=== PATIENT | male | born 1970 | race African-American/Black ===

== ENCOUNTER 2017-01-12 17:53 | Emergency (ER) | payer MEDICAID ==
[~2017-01-12] VITALS: Ht 177.8 cm; Wt 91.0 kg
[2017-01-12] MEDS ORDERED: IBUPROFEN 800MG TABLET PO ONE (19:15)
[2017-01-12] MEDS ORDERED: ONDANSETRON HCL 4MG TABLET PO ONE (19:15)
[2017-01-12 19:46] VITALS: BP 121/66
[2017-01-12 20:26] LABS: BASOPHILS % 0.8 % (0.0-2.0); CHLORIDE 108 mEq/L (98-107); EOSINOPHILS % 3.9 % (0.0-5.0); HEMATOCRIT. 43.4 % (42.0-52.0); HEMOGLOBIN. 14.8 g/dL (14.0-18.0); LYMPHOCYTES % 57.8 % (20.0-50.0); MEAN CORPUSCULAR HEMOGLOBIN 34.3 pg (28.0-32.0); MEAN CORPUSCULAR VOLUME 100.8 fL (80.0-94.0); MEAN PLATELET VOLUME 8.4 fl (7.4-10.4); MONOCYTES % 10.1 % (2.0-8.0); NEUTROPHILS % 27.4 % (40.0-76.0); PLATELET 109 x1000/uL (130-400); RED CELL DISTRIBUTION WIDTH 15.6 % (11.6-14.6)
[2017-01-12 20:30] LABS: CARBON DIOXIDE 26 mEq/L (21-32)
[2017-01-12 20:39] LABS: ETHANOL BLOOD 417 mg/dL
== END 2017-01-12 22:02 | disposition home or self-care (01) ==
LOC: ER 18:13
DX: F10.129 Alcohol abuse with intoxication, unspecified (principal); Z88.0 Allergy status to penicillin; Z91.010 Allergy to peanuts; Y90.8 Blood alcohol level of 240 mg/100 ml or more
CPT/HCPCS: 36415; 80053; 85025; 99284; G0482; Q0162

== ENCOUNTER 2017-03-04 15:52 | Emergency (ER) | payer MEDICAID, OTHER ==
[~2017-03-04] VITALS: Ht 177.8 cm; Wt 90.0 kg
[2017-03-04] MEDS ORDERED: SODIUM CHLORIDE 0.9% 1,000 ML IV ONE (19:32)
[2017-03-04 19:44] LABS: CLARITY URINE CLEAR (CLEAR); COLOR URINE YELLOW (YELLOW); GLUCOSE URINE NEGATIVE (NEGATIVE); KETONES URINE NEGATIVE (NEGATIVE); LEUKOCYTE ESTERASE URINE NEGATIVE (NEGATIVE); NITRITE URINE NEGATIVE (NEGATIVE); OCCULT BLOOD URINE NEGATIVE (NEGATIVE); PH URINE 5.5 (4.5-8.0); PROTEIN URINE TRACE (NEGATIVE); UROBILINOGEN URINE 0.2 E.U./dL (0.2-1.0)
[2017-03-04 19:55] LABS: *AMPHETAMINES SCREEN URINE NEGATIVE (NEGATIVE); *BARBITURATES SCREEN URINE NEGATIVE (NEGATIVE); *BENZODIAZEPINES SCREEN URINE NEGATIVE (NEGATIVE); *COCAINE SCREEN URINE NEGATIVE (NEGATIVE); CANNABINOID URINE SCREEN NEGATIVE (NEGATIVE); METHADONE URINE SCREEN NEGATIVE (NEGATIVE); OPIATES URINE SCREEN NEGATIVE (NEGATIVE); PHENCYCLIDINE URINE SCREEN NEGATIVE (NEGATIVE)
[2017-03-04 20:28] LABS: BASOPHILS % 1.4 % (0.0-2.0); EOSINOPHILS % 4.8 % (0.0-5.0); HEMATOCRIT. 42.6 % (42.0-52.0); HEMOGLOBIN. 14.5 g/dL (14.0-18.0); LYMPHOCYTES % 63.4 % (20.0-50.0); MEAN CORPUSCULAR HEMOGLOBIN 34.9 pg (28.0-32.0); MEAN CORPUSCULAR VOLUME 102.6 fL (80.0-94.0); MEAN PLATELET VOLUME 7.4 fl (7.4-10.4); MONOCYTES % 6.8 % (2.0-8.0); NEUTROPHILS % 23.6 % (40.0-76.0); PLATELET 170 x1000/uL (130-400); RED BLOOD CELL COUNT 4.15 mill/uL (4.7-6.1); RED CELL DISTRIBUTION WIDTH 15.2 % (11.6-14.6)
[2017-03-04 20:34] LABS: CHLORIDE 109 mEq/L (98-107)
[2017-03-04 20:36] LABS: INR 1.1; PROTHROMBIN TIME 11.5 sec (9.4-11.6)
[2017-03-04 20:38] LABS: CARBON DIOXIDE 28 mEq/L (21-32)
[2017-03-04 20:54] LABS: ETHANOL BLOOD 407 mg/dL
[2017-03-04 22:33] VITALS: BP 108/66
== END 2017-03-04 22:39 | disposition home or self-care (01) ==
LOC: ER 16:03
DX: F10.10 Alcohol abuse, uncomplicated (principal); R10.9 Unspecified abdominal pain; Z86.73 Personal history of transient ischemic attack (TIA), and cerebral infarction without residual deficits; Z88.0 Allergy status to penicillin; Y08.89XA Assault by other specified means, initial encounter; Y93.89 Activity, other specified; Y92.89 Other specified places as the place of occurrence of the external cause; Y99.8 Other external cause status
CPT/HCPCS: 36415; 70450; 74176; 80053; 80305; 81001; 83690; 85025; 85610; 96360; 99285; G0482; Z7610; J7030

== ENCOUNTER 2017-04-28 11:22 | Emergency (ER) | payer OTHER ==
[~2017-04-28] VITALS: Ht 172.7 cm; Wt 80.0 kg
[2017-04-28 11:23] VITALS: BP 148/82
[2017-04-28] MEDS ORDERED: ONDANSETRON HCL 4MG/2ML VIAL IV STA (11:30)
[2017-04-28] MEDS ORDERED: SODIUM CHLORIDE 0.9% 1,000 ML IV ONE (11:30)
[2017-04-28] MEDS ORDERED: FAMOTIDINE 20MG/2ML VIAL IV STA (11:30)
[2017-04-28 12:17] LABS: BASOPHILS % 0.8 % (0.0-2.0); EOSINOPHILS % 2.4 % (0.0-5.0); HEMATOCRIT. 48.4 % (42.0-52.0); HEMOGLOBIN. 16.5 g/dL (14.0-18.0); LYMPHOCYTES % 59.4 % (20.0-50.0); MEAN CORPUSCULAR HEMOGLOBIN 35.3 pg (28.0-32.0); MEAN CORPUSCULAR VOLUME 103.4 fL (80.0-94.0); MEAN PLATELET VOLUME 7.8 fl (7.4-10.4); MONOCYTES % 6.8 % (2.0-8.0); NEUTROPHILS % 30.6 % (40.0-76.0); PLATELET 142 x1000/uL (130-400); RED BLOOD CELL COUNT 4.68 mill/uL (4.7-6.1); RED CELL DISTRIBUTION WIDTH 14.2 % (11.6-14.6)
[2017-04-28 12:20] LABS: CHLORIDE 109 mEq/L (98-107)
[2017-04-28 12:29] LABS: CARBON DIOXIDE 26 mEq/L (21-32)
[2017-04-28 12:48] LABS: ETHANOL BLOOD 452 mg/dL
== END 2017-04-28 15:26 | disposition left against medical advice (07) ==
LOC: ER 11:29
DX: R10.13 Epigastric pain (principal); F10.129 Alcohol abuse with intoxication, unspecified; K70.30 Alcoholic cirrhosis of liver without ascites; I10 Essential (primary) hypertension; E11.9 Type 2 diabetes mellitus without complications; F17.210 Nicotine dependence, cigarettes, uncomplicated; D72.819 Decreased white blood cell count, unspecified; Y90.8 Blood alcohol level of 240 mg/100 ml or more; Z88.0 Allergy status to penicillin; Z90.49 Acquired absence of other specified parts of digestive tract
CPT/HCPCS: 36415; 80053; 83690; 85025; 99284; G0482; J7030

== ENCOUNTER 2017-07-19 10:51 | Emergency (ER) | payer OTHER ==
[~2017-07-19] VITALS: Ht 175.3 cm; Wt 98.0 kg
[2017-07-19] MEDS ORDERED: ONDANSETRON HCL 4MG/2ML VIAL IV STA (16:46)
[2017-07-19] MEDS ORDERED: PANTOPRAZOLE SODIUM 40 MG/VIAL IV STA (16:46)
[2017-07-19] MEDS ORDERED: MORPHINE SULFATE 4 MG/ML CPJ (NOT FOR IM USE) IV STA (16:46)
[2017-07-19] MEDS ORDERED: LORAZEPAM 2MG/ML CPJ IV ONE (17:00)
[2017-07-19] MEDS ORDERED: SODIUM CHLORIDE 0.9% 1,000 ML IV ONE ×2 (17:00)
[2017-07-19 17:20] LABS: BASOPHILS % 0.9 % (0.0-2.0); EOSINOPHILS % 1.6 % (0.0-5.0); HEMATOCRIT. 42.6 % (42.0-52.0); HEMOGLOBIN. 14.4 g/dL (14.0-18.0); LYMPHOCYTES % 50.5 % (20.0-50.0); MEAN CORPUSCULAR HEMOGLOBIN 34.4 pg (28.0-32.0); MEAN CORPUSCULAR VOLUME 101.3 fL (80.0-94.0); MEAN PLATELET VOLUME 7.8 fl (7.4-10.4); MONOCYTES % 6.2 % (2.0-8.0); NEUTROPHILS % 40.8 % (40.0-76.0); PLATELET 116 x1000/uL (130-400); RED CELL DISTRIBUTION WIDTH 15.2 % (11.6-14.6)
[2017-07-19 17:24] LABS: CHLORIDE 102 mEq/L (98-107)
[2017-07-19 17:25] LABS: INR 1.1; PARTIAL THROMBOPLASTIN TIME 26.5 sec (23.4-31.0); PROTHROMBIN TIME 11.4 sec (9.4-11.6)
[2017-07-19 17:35] LABS: CLARITY URINE CLEAR (CLEAR); COLOR URINE YELLOW (YELLOW); KETONES URINE TRACE (NEGATIVE); LEUKOCYTE ESTERASE URINE NEGATIVE (NEGATIVE); NITRITE URINE NEGATIVE (NEGATIVE); OCCULT BLOOD URINE 1+ (NEGATIVE); PH URINE 5.5 (4.5-8.0); PROTEIN URINE 2+ (NEGATIVE); SPECIFIC GRAVITY URINE 1.013 (1.005-1.030)
[2017-07-19 18:52] VITALS: BP 123/83
== END 2017-07-19 19:02 | disposition home or self-care (01) ==
LOC: ER 10:58
DX: F10.239 Alcohol dependence with withdrawal, unspecified (principal); K29.21 Alcoholic gastritis with bleeding; K70.30 Alcoholic cirrhosis of liver without ascites; Y90.9 Presence of alcohol in blood, level not specified; K27.9 Peptic ulcer, site unspecified, unspecified as acute or chronic, without hemorrhage or perforation; E11.9 Type 2 diabetes mellitus without complications; I10 Essential (primary) hypertension; Z88.0 Allergy status to penicillin; Z90.49 Acquired absence of other specified parts of digestive tract; Z86.73 Personal history of transient ischemic attack (TIA), and cerebral infarction without residual deficits
CPT/HCPCS: 36415; 80053; 81003; 83690; 85025; 85610; 85730; 86850; 86900; 86901; 96361; 96374; 96375; 99285; C9113; J2060; J2270; J2405; J7030; Z7610

== ENCOUNTER 2017-10-24 21:06 | Emergency (ER) | payer MEDICAID, OTHER ==
[~2017-10-24] VITALS: Ht 185.4 cm; Wt 102.0 kg
[2017-10-24 21:09] VITALS: BP 108/64
== END 2017-10-25 00:59 | disposition left against medical advice (07) ==
LOC: ER 23:09
DX: F10.10 Alcohol abuse, uncomplicated (principal); Z53.21 Procedure and treatment not carried out due to patient leaving prior to being seen by health care provider; Y90.9 Presence of alcohol in blood, level not specified

== ENCOUNTER 2018-09-21 16:15 | Emergency (ER) | payer MEDICAID ==
[~2018-09-21] VITALS: Ht 177.8 cm; Wt 105.0 kg
[2018-09-21 21:15] VITALS: BP 104/55
== END 2018-09-21 21:17 | disposition home or self-care (01) ==
LOC: ER 16:15
DX: F10.229 Alcohol dependence with intoxication, unspecified (principal); Y90.0 Blood alcohol level of less than 20 mg/100 ml; E11.9 Type 2 diabetes mellitus without complications; I10 Essential (primary) hypertension; Z86.73 Personal history of transient ischemic attack (TIA), and cerebral infarction without residual deficits; Z88.0 Allergy status to penicillin; Z91.010 Allergy to peanuts
CPT/HCPCS: 82962; 99283; Z7610

== ENCOUNTER 2019-12-12 18:01 | Inpatient (IN) | payer MEDICAID ==
[2019-12-12] VITALS: BP 125/70
[~2019-12-12] VITALS: Ht 172.7 cm; Wt 96.4 kg
[2019-12-12] MEDS ORDERED: ONDANSETRON HCL 4MG/2ML INJ IV STA (18:41)
[2019-12-12] MEDS ORDERED: SODIUM CHLORIDE 0.9% 1,000 ML IV ONE (18:41)
[2019-12-12] MEDS ORDERED: FAMOTIDINE 20MG/2ML VIAL IV STA (18:41)
[2019-12-12] MEDS ORDERED: MORPHINE SULFATE 4 MG/ML CPJ (NOT FOR IM USE) IV STA (18:41)
[2019-12-12] MEDS ORDERED: LORAZEPAM 2MG/ML CPJ IV ONE (19:15)
[2019-12-12 19:16] LABS: HEMATOCRIT. 42.1 % (42.0-52.0); HEMOGLOBIN. 14.3 g/dL (14.0-18.0); MEAN CORPUSCULAR HEMOGLOBIN 35.8 pg (28.0-32.0); MEAN CORPUSCULAR VOLUME 105.3 fL (80.0-94.0); MEAN PLATELET VOLUME 7.7 fl (7.4-10.4); PLATELET 81 x1000/uL (130-400)
[2019-12-12 19:21] LABS: CHLORIDE 104 mEq/L (98-107)
[2019-12-12 19:24] LABS: INR 1.1
[2019-12-12 19:39] LABS: ETHANOL BLOOD 417 mg/dL
[2019-12-12 20:15] LABS: CLARITY URINE CLEAR (CLEAR); COLOR URINE DK YELLOW (YELLOW); KETONES URINE TRACE (NEGATIVE); LEUKOCYTE ESTERASE URINE NEGATIVE (NEGATIVE); NITRITE URINE NEGATIVE (NEGATIVE); OCCULT BLOOD URINE 3+ (NEGATIVE); PROTEIN URINE 2+ (NEGATIVE); SPECIFIC GRAVITY URINE 1.015 (1.005-1.030)
[2019-12-12 20:24] LABS: PLATELET ESTIMATE DECREASED
[2019-12-12 20:52] LABS: *AMPHETAMINES SCREEN URINE NEGATIVE (NEGATIVE); *BARBITURATES SCREEN URINE NEGATIVE (NEGATIVE)
[2019-12-12 20:53] LABS: *BENZODIAZEPINES SCREEN URINE NEGATIVE (NEGATIVE); *COCAINE SCREEN URINE NEGATIVE (NEGATIVE); CANNABINOID URINE SCREEN NEGATIVE (NEGATIVE); METHADONE URINE SCREEN NEGATIVE (NEGATIVE); OPIATES URINE SCREEN NEGATIVE (NEGATIVE); PHENCYCLIDINE URINE SCREEN NEGATIVE (NEGATIVE)
[2019-12-13] VITALS (7 sets, daily range): BP systolic 105–151; BP diastolic 60–84
[2019-12-13] MEDS: LORAZEPAM 2MG/ML CPJ IV PRN ×4 (00:36→23:41)
[2019-12-13] MEDS: CHLORDIAZEPOXIDE 25MG CAPSULE PO SCH ×4 (05:44→21:02)
[2019-12-13 06:15] LABS: CHLORIDE 102 mEq/L (98-107)
[2019-12-13 06:19] LABS: AMYLASE 78 IU/L (25-115)
[2019-12-13 06:47] LABS: HEMATOCRIT. 37.1 % (42.0-52.0); HEMOGLOBIN. 12.5 g/dL (14.0-18.0); MEAN CORPUSCULAR HEMOGLOBIN 35.8 pg (28.0-32.0); MEAN CORPUSCULAR VOLUME 105.8 fL (80.0-94.0); MEAN PLATELET VOLUME 8.1 fl (7.4-10.4); PLATELET 68 x1000/uL (130-400)
[2019-12-13] MEDS: MULTIVITAMINS,THER W-MINERALS TABLET PO SCH (08:28)
[2019-12-13] MEDS: THIAMINE HCL 100MG TABLET PO SCH (08:28)
[2019-12-13] MEDS: FOLIC ACID 1MG TABLET PO SCH (08:29)
[2019-12-13] MEDS ORDERED: DIPHENHYDRAMINE 50MG CAPSULE PO PRN (10:00)
[2019-12-13] MEDS: OMEPRAZOLE 20MG CAPSULE EXTENDED RELEASE PO SCH (13:16)
[2019-12-13] MEDS ORDERED: METOPROLOL TARTRATE 50MG TABLET PO SCH ×2 (14:00→21:00)
[2019-12-13 14:44] LABS: PLATELET ESTIMATE DECREASED
[2019-12-13] MEDS ORDERED: DIPHENHYDRAMINE 50MG/ML VIAL IV PRN (19:45)
[2019-12-13] MEDS: MORPHINE SULFATE 2 MG/ML CPJ (NOT FOR IM USE) IV PRN (20:18)
[2019-12-14] VITALS (12 sets, daily range): BP systolic 48–139; BP diastolic 26–87
[2019-12-14] MEDS ORDERED: ONDANSETRON HCL 4MG/2ML INJ IV PRN
[2019-12-14] MEDS: MORPHINE SULFATE 2 MG/ML CPJ (NOT FOR IM USE) IV PRN (00:26)
[2019-12-14] MEDS: CHLORDIAZEPOXIDE 25MG CAPSULE PO SCH ×3 (05:17→22:21)
[2019-12-14 06:48] LABS: CHLORIDE 101 mEq/L (98-107)
[2019-12-14 06:57] LABS: PHOSPHORUS 2.7 mg/dL (2.5-4.9)
[2019-12-14 07:05] LABS: BASOPHILS % 0.4 % (0.0-2.0); EOSINOPHILS % 1.9 % (0.0-5.0); HEMATOCRIT. 41.7 % (42.0-52.0); HEMOGLOBIN. 14.1 g/dL (14.0-18.0); LYMPHOCYTES % 10.4 % (20.0-50.0); MEAN CORPUSCULAR HEMOGLOBIN 35.8 pg (28.0-32.0); MEAN CORPUSCULAR VOLUME 105.9 fL (80.0-94.0); MONOCYTES % 2.9 % (2.0-8.0); NEUTROPHILS % 84.4 % (40.0-76.0); PLATELET 73 x1000/uL (130-400); RED BLOOD CELL COUNT 3.94 mill/uL (4.7-6.1); RED CELL DISTRIBUTION WIDTH 14.7 % (11.6-14.6)
[2019-12-14] MEDS: MULTIVITAMINS,THER W-MINERALS TABLET PO SCH (08:39)
[2019-12-14] MEDS: FOLIC ACID 1MG TABLET PO SCH (08:39)
[2019-12-14] MEDS: THIAMINE HCL 100MG TABLET PO SCH (08:39)
[2019-12-14] MEDS: ACETYLCYSTEINE 100MG/ML 10% VIAL 4ML INH SCH (08:49)
[2019-12-14] MEDS ORDERED: METOPROLOL TARTRATE 100MG TABLET PO SCH (09:00)
[2019-12-14] MEDS ORDERED: DILTIAZEM HCL 5MG/ML 5ML VIAL IV NR (12:15)
[2019-12-14] MEDS: OMEPRAZOLE 20MG CAPSULE EXTENDED RELEASE PO SCH (13:00)
[2019-12-14 13:07] LABS: BG BASE EXCESS -1.5 mmol/L (-2.0-2.0); BG CARBOXYHEMOGLOBIN 1.3 % (0.5-1.5); BG DEOXYHEMOGLOBIN 21.3 % (0.0-5.0); BG FRACTION INSPIRED OXYGEN 21; BG HCO3 ACT 20.7 mmol/L (22.0-26.0); BG METHEMOGLOBIN 0.3 % (0.0-1.5); BG OXYGEN SATURATION 78.4 % (92.0-98.5); BG OXYHEMOGLOBIN 77.1 % (94.0-97.0); BG PCO2 28.3 mmHg (35.0-45.0); BG PH 7.481 (7.350-7.450); BG PO2 40.7 mmHg (75.0-100.0); BG SAMPLE SITE RIGHT RADIAL; BG TOTAL HEMOGLOBIN 14.6 g/dL (12.0-18.0); BG VENT MODE ROOM AIR
[2019-12-14] MEDS: CEFEPIME 1,000 MG in DEXTROSE 5% WATER 50 ML IV SCH ×2 (15:47→22:20)
[2019-12-14] MEDS: METRONIDAZOLE 500 MG PREMIX 100 ML IV SCH ×2 (15:47→22:20)
[2019-12-14] MEDS ORDERED: DILTIAZEM HCL 120MG CAPSULE CD 24HR PO SCH (18:00)
[2019-12-14] MEDS: DILTIAZEM HCL 60MG TABLET PO SCH (18:00)
[2019-12-14] MEDS: FOLIC ACID 1 MG, THIAMINE HCL 100 MG, MVI, ADULT NO.1 10 ML in DEXTROSE 5% WATER 1,000 ML IV SCH ×4 (18:13)
[2019-12-14] MEDS: IPRATROPIUM BROMIDE (0.02%) 0.5MG/2.5ML NEB HHN SCH (19:59)
[2019-12-14] MEDS ORDERED: EPINEPHRINE 1 MG in SODIUM CHLORIDE 0.9% 250 ML IV PRN (23:30)
[2019-12-15] VITALS (96 sets, daily range): BP systolic 73–135; BP diastolic 45–101
[2019-12-15 00:25] LABS: BG BASE EXCESS -7.6 mmol/L (-2.0-2.0); BG CARBOXYHEMOGLOBIN 0.3 % (0.5-1.5); BG DEOXYHEMOGLOBIN 23.7 % (0.0-5.0); BG FRACTION INSPIRED OXYGEN 100; BG HCO3 ACT 23.6 mmol/L (22.0-26.0); BG METHEMOGLOBIN 0.4 % (0.0-1.5); BG OXYGEN SATURATION 76.1 % (92.0-98.5); BG OXYHEMOGLOBIN 75.6 % (94.0-97.0); BG PCO2 78.1 mmHg (35.0-45.0); BG PH 7.099 (7.350-7.450); BG PO2 55.8 mmHg (75.0-100.0); BG SAMPLE SITE LEFT BRACHIAL; BG TIDAL VOLUME(mL) 500 mL; BG TOTAL HEMOGLOBIN 13.7 g/dL (12.0-18.0); BG VENT MODE VENT - A/C; BG VENT RATE 16 set
[2019-12-15] MEDS: PHENYLEPHRINE 80 MG in DEXT 5% WATER 492 ML IV PRN ×4 (01:11→22:09)
[2019-12-15] MEDS: VASOPRESSIN 10 UNIT in SODIUM CHLORIDE 0.9% 99.5 ML IV PRN ×4 (04:37→19:02)
[2019-12-15] MEDS: DILTIAZEM HCL 60MG TABLET PO SCH ×5 (05:21→23:01)
[2019-12-15] MEDS: CHLORDIAZEPOXIDE 25MG CAPSULE PO SCH (05:21)
[2019-12-15] MEDS: METRONIDAZOLE 500 MG PREMIX 100 ML IV SCH ×3 (05:21→21:03)
[2019-12-15 05:23] LABS: BASOPHILS % 0.4 % (0.0-2.0); EOSINOPHILS % 3.6 % (0.0-5.0); HEMATOCRIT. 42.3 % (42.0-52.0); HEMOGLOBIN. 14.2 g/dL (14.0-18.0); MEAN CORPUSCULAR HEMOGLOBIN 36.1 pg (28.0-32.0); MEAN CORPUSCULAR VOLUME 107.1 fL (80.0-94.0); MEAN PLATELET VOLUME 9.8 fl (7.4-10.4); MONOCYTES % 10.5 % (2.0-8.0); NEUTROPHILS % 68.5 % (40.0-76.0); PLATELET 78 x1000/uL (130-400); RED BLOOD CELL COUNT 3.95 mill/uL (4.7-6.1); RED CELL DISTRIBUTION WIDTH 15.3 % (11.6-14.6)
[2019-12-15 08:15] LABS: BG BASE EXCESS 0.7 mmol/L (-2.0-2.0); BG CARBOXYHEMOGLOBIN 0.4 % (0.5-1.5); BG DEOXYHEMOGLOBIN 7.8 % (0.0-5.0); BG FRACTION INSPIRED OXYGEN 100; BG HCO3 ACT 26.3 mmol/L (22.0-26.0); BG METHEMOGLOBIN 0.1 % (0.0-1.5); BG OXYGEN SATURATION 92.2 % (92.0-98.5); BG OXYHEMOGLOBIN 91.7 % (94.0-97.0); BG PCO2 45.6 mmHg (35.0-45.0); BG PH 7.379 (7.350-7.450); BG PO2 66.9 mmHg (75.0-100.0); BG SAMPLE SITE RIGHT RADIAL; BG TIDAL VOLUME(mL) 500 mL; BG TOTAL HEMOGLOBIN 14.5 g/dL (12.0-18.0); BG VENT MODE VENT - A/C; BG VENT RATE 20 set
[2019-12-15] MEDS: IPRATROPIUM BROMIDE (0.02%) 0.5MG/2.5ML NEB HHN SCH ×2 (08:49→21:02)
[2019-12-15] MEDS ORDERED: NOREPINEPHRINE 4 MG in DEXT 5% WATER 246 ML IV PRN (10:00)
[2019-12-15] MEDS: DEXT 5%/0.45% NACL 1000ML 1,000 ML IV SCH (10:05)
[2019-12-15] MEDS: CEFEPIME 1,000 MG in DEXTROSE 5% WATER 50 ML IV SCH ×2 (11:50→20:19)
[2019-12-15] MEDS: OMEPRAZOLE 20MG CAPSULE EXTENDED RELEASE PO SCH (14:17)
[2019-12-15] MEDS: FOLIC ACID 1 MG, THIAMINE HCL 100 MG, MVI, ADULT NO.1 10 ML in DEXTROSE 5% WATER 1,000 ML IV SCH ×4 (17:46)
[2019-12-15] MEDS: ACETYLCYSTEINE 100MG/ML 10% VIAL 4ML INH SCH (21:03)
[2019-12-16] VITALS (102 sets, daily range): BP systolic 72–173; BP diastolic 45–134
[2019-12-16] MEDS ORDERED: ACETAMINOPHEN 650MG/20.3ML UDC NG PRN (00:45)
[2019-12-16] MEDS: VASOPRESSIN 10 UNIT in SODIUM CHLORIDE 0.9% 99.5 ML IV PRN ×5 (01:12→19:36)
[2019-12-16] MEDS: IPRATROPIUM BROMIDE (0.02%) 0.5MG/2.5ML NEB HHN SCH ×5 (02:28→20:18)
[2019-12-16] MEDS: PHENYLEPHRINE 80 MG in DEXT 5% WATER 492 ML IV PRN ×3 (04:51→23:28)
[2019-12-16 05:16] LABS: BASOPHILS % 0.8 % (0.0-2.0); EOSINOPHILS % 13.3 % (0.0-5.0); HEMATOCRIT. 34.5 % (42.0-52.0); HEMOGLOBIN. 11.6 g/dL (14.0-18.0); LYMPHOCYTES % 22.1 % (20.0-50.0); MEAN CORPUSCULAR HEMOGLOBIN 35.8 pg (28.0-32.0); MEAN CORPUSCULAR VOLUME 106.5 fL (80.0-94.0); MEAN PLATELET VOLUME 10.5 fl (7.4-10.4); MONOCYTES % 10.1 % (2.0-8.0); NEUTROPHILS % 53.7 % (40.0-76.0); PLATELET 64 x1000/uL (130-400); RED BLOOD CELL COUNT 3.24 mill/uL (4.7-6.1)
[2019-12-16 05:20] LABS: CHLORIDE 100 mEq/L (98-107)
[2019-12-16] MEDS: DILTIAZEM HCL 60MG TABLET PO SCH ×3 (06:00→17:44)
[2019-12-16] MEDS: DEXT 5%/0.45% NACL 1000ML 1,000 ML IV SCH ×3 (06:16→16:00)
[2019-12-16] MEDS: METRONIDAZOLE 500 MG PREMIX 100 ML IV SCH ×3 (06:16→22:24)
[2019-12-16] MEDS ORDERED: POTASSIUM CHLORIDE INJ 40 MEQ in DEXT 5% WATER 250 ML IV SCH (08:00)
[2019-12-16] MEDS: ACETYLCYSTEINE 100MG/ML 10% VIAL 4ML INH SCH ×2 (08:32→16:09)
[2019-12-16] MEDS: CEFEPIME 1,000 MG in DEXTROSE 5% WATER 50 ML IV SCH ×2 (09:09→22:24)
[2019-12-16 12:34] LABS: BG BASE EXCESS -0.2 mmol/L (-2.0-2.0); BG CARBOXYHEMOGLOBIN 0.1 % (0.5-1.5); BG DEOXYHEMOGLOBIN 6.7 % (0.0-5.0); BG FRACTION INSPIRED OXYGEN 100; BG HCO3 ACT 23.8 mmol/L (22.0-26.0); BG METHEMOGLOBIN 0.2 % (0.0-1.5); BG OXYGEN SATURATION 93.3 % (92.0-98.5); BG PCO2 36.7 mmHg (35.0-45.0); BG PH 7.429 (7.350-7.450); BG SAMPLE SITE RIGHT RADIAL; BG TIDAL VOLUME(mL) 500 mL; BG TOTAL HEMOGLOBIN 12.8 g/dL (12.0-18.0); BG VENT MODE VENT - A/C; BG VENT RATE 20 set
[2019-12-16] MEDS: OMEPRAZOLE 20MG CAPSULE EXTENDED RELEASE PO SCH (13:08)
[2019-12-16] MEDS: FOLIC ACID 1 MG, THIAMINE HCL 100 MG, MVI, ADULT NO.1 10 ML in DEXTROSE 5% WATER 1,000 ML IV SCH ×4 (17:44)
[2019-12-17] VITALS (95 sets, daily range): BP systolic 80–163; BP diastolic 48–119
[2019-12-17] MEDS: VASOPRESSIN 10 UNIT in SODIUM CHLORIDE 0.9% 99.5 ML IV PRN ×5 (00:21→18:41)
[2019-12-17] MEDS: IPRATROPIUM BROMIDE (0.02%) 0.5MG/2.5ML NEB HHN SCH ×4 (02:12→20:36)
[2019-12-17] MEDS: DILTIAZEM HCL 60MG TABLET PO SCH ×4 (05:15→17:31)
[2019-12-17] MEDS: METRONIDAZOLE 500 MG PREMIX 100 ML IV SCH ×2 (06:15→13:08)
[2019-12-17] MEDS: ACETYLCYSTEINE 100MG/ML 10% VIAL 4ML INH SCH ×2 (08:10→14:15)
[2019-12-17 08:51] LABS: BG BASE EXCESS -0.4 mmol/L (-2.0-2.0); BG CARBOXYHEMOGLOBIN 0.3 % (0.5-1.5); BG DEOXYHEMOGLOBIN 5.3 % (0.0-5.0); BG FRACTION INSPIRED OXYGEN 100; BG HCO3 ACT 22.8 mmol/L (22.0-26.0); BG METHEMOGLOBIN 0.4 % (0.0-1.5); BG OXYGEN SATURATION 94.7 % (92.0-98.5); BG PH 7.458 (7.350-7.450); BG PO2 72.8 mmHg (75.0-100.0); BG SAMPLE SITE RIGHT RADIAL; BG TIDAL VOLUME(mL) 500 mL; BG TOTAL HEMOGLOBIN 12.1 g/dL (12.0-18.0); BG VENT MODE VENT - A/C; BG VENT RATE 20 set
[2019-12-17] MEDS: CEFEPIME 1,000 MG in DEXTROSE 5% WATER 50 ML IV SCH (09:00)
[2019-12-17] MEDS: DEXT 5%/0.45% NACL 1000ML 1,000 ML IV SCH (13:08)
[2019-12-17] MEDS: OMEPRAZOLE 20MG CAPSULE EXTENDED RELEASE PO SCH (13:08)
[2019-12-17] MEDS: FOLIC ACID 1 MG, THIAMINE HCL 100 MG, MVI, ADULT NO.1 10 ML in DEXTROSE 5% WATER 1,000 ML IV SCH ×4 (17:31)
[2019-12-17] MEDS: PHENYLEPHRINE 80 MG in DEXT 5% WATER 492 ML IV PRN (17:31)
[2019-12-17] MEDS ORDERED: DOBUTAMINE 500MG PREMIX 250 ML IV PRN (21:30)
[2019-12-17] MEDS ORDERED: LEVOTHYROXINE SODIUM 100 MCG/ VIAL IV PRN (21:30)
[2019-12-17] MEDS ORDERED: PIPERACILLIN/TAZOBACTAM 3.375 G/VIAL IV SCH (21:30)
[2019-12-17] MEDS ORDERED: DOBUTAMINE 250MG PREMIX 250 ML IV SCH (22:00)
[2019-12-17 22:07] LABS: BG BASE EXCESS 1.1 mmol/L (-2.0-2.0); BG CARBOXYHEMOGLOBIN 0.3 % (0.5-1.5); BG DEOXYHEMOGLOBIN 7.1 % (0.0-5.0); BG FRACTION INSPIRED OXYGEN 100; BG HCO3 ACT 25.8 mmol/L (22.0-26.0); BG METHEMOGLOBIN 0.3 % (0.0-1.5); BG OXYGEN SATURATION 92.9 % (92.0-98.5); BG OXYHEMOGLOBIN 92.3 % (94.0-97.0); BG PCO2 41.3 mmHg (35.0-45.0); BG PH 7.414 (7.350-7.450); BG PO2 67.3 mmHg (75.0-100.0); BG SAMPLE SITE RIGHT RADIAL; BG TIDAL VOLUME(mL) 500 mL; BG TOTAL HEMOGLOBIN 11.7 g/dL (12.0-18.0); BG VENT MODE VENT - A/C; BG VENT RATE 18 set
[2019-12-17] MEDS ORDERED: LEVOTHYROXINE SODIUM 200 MCG in SODIUM CHLORIDE 0.9% 500 ML IV SCH (22:30)
[2019-12-17] MEDS ORDERED: METHYLPREDNISOLONE SOD SUCC IV NR (23:00)
[2019-12-17] MEDS ORDERED: HETASTARCH/NORMAL SALINE 500 ML PLAST..BAG IV NR (23:00)
[2019-12-17] MEDS ORDERED: THIAMINE HCL 500 MG in SODIUM CHLORIDE 0.9% 49 ML IV NR (23:00)
[2019-12-18] VITALS (9 sets, daily range): BP systolic 87–153; BP diastolic 49–101
[2019-12-18] MEDS ORDERED: ALBUMIN HUMAN 25GM/500ML (5%) IV NR (00:15)
[2019-12-18 00:22] LABS: HEMATOCRIT. 31.6 % (42.0-52.0); MEAN CORPUSCULAR HEMOGLOBIN 36.1 pg (28.0-32.0); MEAN CORPUSCULAR VOLUME 103.6 fL (80.0-94.0); MEAN PLATELET VOLUME 9.6 fl (7.4-10.4); PLATELET 71 x1000/uL (130-400); RED BLOOD CELL COUNT 3.05 mill/uL (4.7-6.1); RED CELL DISTRIBUTION WIDTH 14.5 % (11.6-14.6)
[2019-12-18 00:28] LABS: CHLORIDE 90 mEq/L (98-107)
[2019-12-18 00:29] LABS: INR 1.2; PARTIAL THROMBOPLASTIN TIME 33.3 sec (23.4-31.0); PROTHROMBIN TIME 12.9 sec (9.6-11.0)
[2019-12-18 00:35] LABS: AMYLASE 35 IU/L (25-115)
[2019-12-18 00:37] LABS: PHOSPHORUS 1.7 mg/dL (2.5-4.9)
[2019-12-18 00:54] LABS: CLARITY URINE CLEAR (CLEAR); COLOR URINE DARK YELLOW (YELLOW); KETONES URINE NEGATIVE (NEGATIVE); LEUKOCYTE ESTERASE URINE 1+ (NEGATIVE); NITRITE URINE NEGATIVE (NEGATIVE); OCCULT BLOOD URINE TRACE (NEGATIVE); PH URINE 5.5 (4.5-8.0); PROTEIN URINE 1+ (NEGATIVE)
[2019-12-18] MEDS ORDERED: KCL 20MEQ/100ML PREMIX 100 ML IV ONE (01:00)
[2019-12-18] MEDS ORDERED: POTASSIUM CHLORIDE INJ 80 MEQ in SODIUM CHLORIDE 0.9% 500 ML IV NR (02:00)
[2019-12-18] MEDS ORDERED: MAGNESIUM 4 G PREMIX 100 ML IV NR (02:00)
[2019-12-18] MEDS ORDERED: CALCIUM CHLORIDE 1,000 MG in DEXT 5% WATER 90 ML IV NR (02:00)
[2019-12-18] MEDS ORDERED: METHYLPREDNISOLONE SOD SUCC 125 MG/2 ML VIAL IV SCH (02:30)
[2019-12-18] MEDS ORDERED: SODIUM CHLORIDE 3% 500ML IV SOLN IV ONE (03:30)
[2019-12-18] MEDS ORDERED: FUROSEMIDE 40MG/4ML VIAL IVP NR (03:30)
[2019-12-18] MEDS ORDERED: VANCOMYCIN 1,500 MG in SODIUM CHLORIDE 0.9% 250 ML IV NR (04:00)
[2019-12-18] MEDS ORDERED: SODIUM CHLORIDE 3% 500 ML IV NR (05:00)
[2019-12-18] MEDS ORDERED: PIPERACILLIN/TAZOBACTAM 3.375 G in DEXT 5% WATER 100 ML IV SCH (06:00)
[2019-12-18] MEDS ORDERED: THIAMINE HCL 100 MG in SODIUM CHLORIDE 0.9% 49 ML IV SCH (06:00)
[2019-12-18 06:10] LABS: CHLORIDE 93 mEq/L (98-107)
[2019-12-18 06:15] LABS: AMYLASE 48 IU/L (25-115)
[2019-12-18 06:43] LABS: INR 1.2
[2019-12-18 07:42] LABS: ATYPICAL LYMPHOCYTES 2; PLATELET ESTIMATE DECREASED
[2019-12-19 11:28] LABS: CLARITY URINE CLEAR (CLEAR); COLOR URINE YELLOW (YELLOW); KETONES URINE NEGATIVE (NEGATIVE); LEUKOCYTE ESTERASE URINE TRACE (NEGATIVE); NITRITE URINE NEGATIVE (NEGATIVE); OCCULT BLOOD URINE NEGATIVE (NEGATIVE); PROTEIN URINE NEGATIVE (NEGATIVE); SPECIFIC GRAVITY URINE 1.017 (1.005-1.030); UROBILINOGEN URINE 0.2 E.U./dL (0.2-1.0)
== END 2019-12-18 03:59 | disposition expired | DRG 720 ==
LOC: ER 18:01 → 6WST 20:21 → EDBEDREQ 20:25 → EDBEDREQTM 20:25 → ENRESERV 21:04 → MICUNO 12-14 23:00 → CVICU 12-16 06:10
PROVIDERS: ADMIT Internal Medicine; ATTEND Internal Medicine
PROC: 5A1945Z Respiratory Ventilation, 24-96 Consecutive Hours (ICD-10-PCS; principal; 2019-12-14)
PROC: 0BH18EZ Insertion of Endotracheal Airway into Trachea, Via Natural or Artificial Opening Endoscopic (ICD-10-PCS; 2019-12-14)
DX: A41.9 Sepsis, unspecified organism (principal); J96.01 Acute respiratory failure with hypoxia; J69.0 Pneumonitis due to inhalation of food and vomit; I10 Essential (primary) hypertension; K76.0 Fatty (change of) liver, not elsewhere classified; E66.9 Obesity, unspecified; Y90.8 Blood alcohol level of 240 mg/100 ml or more; R65.21 Severe sepsis with septic shock; E11.9 Type 2 diabetes mellitus without complications; G93.40 Encephalopathy, unspecified; D61.818 Other pancytopenia; F10.129 Alcohol abuse with intoxication, unspecified; B88.8 Other specified infestations; E87.6 Hypokalemia; Z66 Do not resuscitate; Z86.73 Personal history of transient ischemic attack (TIA), and cerebral infarction without residual deficits; Z68.37 Body mass index [BMI] 37.0-37.9, adult; Z68.32 Body mass index [BMI] 32.0-32.9, adult; Z71.41 Alcohol abuse counseling and surveillance of alcoholic
CPT/HCPCS: 31500; 36415; 36600; 71045; 74176; 76700; 78610; 80048; 80053; 80305; 80320; 81003; 82140; 82150; 82248; 82375; 82805; 82962; 83605; 83615; 83735; 83880; 83930; 84100; 84484; 85025; 86703; 86705; 86803; 86850; 86900; 87070; 87077; 93005; 94002; 94003; 94640; 96374; 99291; A9512; J0692; J1200; J1250; J1940; J2060; J2270; J2370; J2405; J2930; J3370; J3411; J3475; J3480; J3490; J7030; J7040; J7050; J7060; J7070; J7608; P9041; Q0163; G0480

== ENCOUNTER 2019-12-18 04:01 | Inpatient (IN) | payer OTHER ==
[2019-12-18] VITALS (41 sets, daily range): BP systolic 42–127; BP diastolic 46–80
[~2019-12-18] VITALS: Ht 172.7 cm; Wt 92.1 kg
[2019-12-18] MEDS ORDERED: DOBUTAMINE 250MG PREMIX 250 ML IV PRN (04:30)
[2019-12-18 05:00] LABS: BG BASE EXCESS -0.8 mmol/L (-2.0-2.0); BG CARBOXYHEMOGLOBIN 0.3 % (0.5-1.5); BG DEOXYHEMOGLOBIN 11.2 % (0.0-5.0); BG FRACTION INSPIRED OXYGEN 100; BG HCO3 ACT 24.7 mmol/L (22.0-26.0); BG METHEMOGLOBIN 0.1 % (0.0-1.5); BG OXYGEN SATURATION 88.8 % (92.0-98.5); BG OXYHEMOGLOBIN 88.4 % (94.0-97.0); BG PCO2 44.7 mmHg (35.0-45.0); BG PH 7.361 (7.350-7.450); BG PO2 58.8 mmHg (75.0-100.0); BG SAMPLE SITE RIGHT RADIAL; BG TIDAL VOLUME(mL) 446 mL; BG TOTAL HEMOGLOBIN 10.5 g/dL (12.0-18.0); BG VENT MODE APRV; BG VENT RATE 17 set
[2019-12-18] MEDS ORDERED: SODIUM CHLORIDE 0.9% IV SCH (05:00)
[2019-12-18] MEDS ORDERED: LEVOCARNITINE IV SCH (05:00)
[2019-12-18] MEDS: THIAMINE HCL 100 MG in SODIUM CHLORIDE 0.9% 49 ML IV SCH ×3 (05:23→22:55)
[2019-12-18] MEDS: ALBUMIN HUMAN 25GM/100ML (25%) IV SCH ×2 (07:25→20:22)
[2019-12-18 07:58] LABS: CHLORIDE 93 mEq/L (98-107)
[2019-12-18 08:00] LABS: AMYLASE 48 IU/L (25-115)
[2019-12-18 08:02] LABS: INR 1.2
[2019-12-18] MEDS: FUROSEMIDE 40MG/4ML VIAL IVP SCH ×4 (08:03→20:23)
[2019-12-18 08:15] LABS: HEMOGLOBIN. 9.8 g/dL (14.0-18.0); MEAN CORPUSCULAR HEMOGLOBIN 36.1 pg (28.0-32.0); MEAN CORPUSCULAR VOLUME 103.5 fL (80.0-94.0); RED CELL DISTRIBUTION WIDTH 14.7 % (11.6-14.6)
[2019-12-18 08:16] LABS: PLATELET 71 x1000/uL (130-400)
[2019-12-18 09:45] LABS: PLATELET ESTIMATE DECREASED
[2019-12-18] MEDS ORDERED: INSULIN REGULAR (HUMULIN R) 300UNITS/3ML IV SCH (10:15)
[2019-12-18] MEDS: METHYLPREDNISOLONE SOD SUCC 125 MG/2 ML VIAL IV SCH ×2 (10:36→17:15)
[2019-12-18] MEDS ORDERED: PIPERACILLIN/TAZOBACTAM 3.375 G in DEXT 5% WATER 100 ML IV SCH (12:00)
[2019-12-18] MEDS ORDERED: POTASSIUM CHLORIDE INJ 60 MEQ in DEXT 5% WATER 500 ML IV SCH (12:00)
[2019-12-18] MEDS: CEFEPIME 2,000 MG in DEXT 5% WATER 100 ML IV SCH ×2 (12:09→20:22)
[2019-12-18] MEDS: INSULIN REGULAR (DRIP) 100 UNITS in SODIUM CHLORIDE 0.9% 99 ML IV SCH ×2 (12:11→18:12)
[2019-12-18 12:13] LABS: HEMATOCRIT. 28.9 % (42.0-52.0); HEMOGLOBIN. 10.1 g/dL (14.0-18.0); MEAN CORPUSCULAR VOLUME 102.9 fL (80.0-94.0); MEAN PLATELET VOLUME 10.2 fl (7.4-10.4); PLATELET 84 x1000/uL (130-400); RED CELL DISTRIBUTION WIDTH 14.7 % (11.6-14.6)
[2019-12-18 12:14] LABS: BG BASE EXCESS -1.4 mmol/L (-2.0-2.0); BG CARBOXYHEMOGLOBIN 0.2 % (0.5-1.5); BG DEOXYHEMOGLOBIN 4.7 % (0.0-5.0); BG HCO3 ACT 21.4 mmol/L (22.0-26.0); BG METHEMOGLOBIN 0.2 % (0.0-1.5); BG OXYGEN SATURATION 95.3 % (92.0-98.5); BG OXYHEMOGLOBIN 94.9 % (94.0-97.0); BG PCO2 29.7 mmHg (35.0-45.0); BG PH 7.475 (7.350-7.450); BG PIP 36 cmH2O; BG PO2 78.5 mmHg (75.0-100.0); BG SAMPLE SITE A-LINE; BG TIDAL VOLUME(mL) 660 mL; BG TOTAL HEMOGLOBIN 10.8 g/dL (12.0-18.0); BG VENT MODE VENT - PCV
[2019-12-18 12:24] LABS: CHLORIDE 104 mEq/L (98-107); INR 1.3; PARTIAL THROMBOPLASTIN TIME 33.6 sec (23.4-31.0)
[2019-12-18 12:29] LABS: PHOSPHORUS 1.4 mg/dL (2.5-4.9)
[2019-12-18 12:40] LABS: AMYLASE 47 IU/L (25-115)
[2019-12-18 13:28] LABS: CLARITY URINE CLEAR (CLEAR); COLOR URINE YELLOW (YELLOW); KETONES URINE NEGATIVE (NEGATIVE); LEUKOCYTE ESTERASE URINE NEGATIVE (NEGATIVE); NITRITE URINE NEGATIVE (NEGATIVE); OCCULT BLOOD URINE NEGATIVE (NEGATIVE); PH URINE 6.5 (4.5-8.0); PROTEIN URINE NEGATIVE (NEGATIVE); SPECIFIC GRAVITY URINE 1.006 (1.005-1.030); UROBILINOGEN URINE 0.2 E.U./dL (0.2-1.0)
[2019-12-18 13:36] LABS: CLARITY URINE CLEAR (CLEAR); COLOR URINE YELLOW (YELLOW); KETONES URINE NEGATIVE (NEGATIVE); LEUKOCYTE ESTERASE URINE NEGATIVE (NEGATIVE); NITRITE URINE NEGATIVE (NEGATIVE); OCCULT BLOOD URINE NEGATIVE (NEGATIVE); PROTEIN URINE NEGATIVE (NEGATIVE); SPECIFIC GRAVITY URINE 1.007 (1.005-1.030); UROBILINOGEN URINE 0.2 E.U./dL (0.2-1.0)
[2019-12-18 13:37] LABS: NUCLEATED RED BLOOD CELLS 2 /100 WBC; PLATELET ESTIMATE DECREASED
[2019-12-18] MEDS: LEVOTHYROXINE SODIUM 200 MCG in SODIUM CHLORIDE 0.9% 500 ML IV SCH (14:17)
[2019-12-18] MEDS ORDERED: POTASSIUM PHOS,M-BASIC-D-BASIC 15 MMOL in DEXT 5% WATER 245 ML IV SCH (15:00)
[2019-12-18] MEDS: VANCOMYCIN 500 MG PREMIX 100 ML IV SCH (17:15)
[2019-12-18 18:27] LABS: CLARITY URINE CLEAR (CLEAR); COLOR URINE YELLOW (YELLOW); KETONES URINE NEGATIVE (NEGATIVE); LEUKOCYTE ESTERASE URINE NEGATIVE (NEGATIVE); NITRITE URINE NEGATIVE (NEGATIVE); OCCULT BLOOD URINE NEGATIVE (NEGATIVE); PROTEIN URINE NEGATIVE (NEGATIVE); SPECIFIC GRAVITY URINE 1.009 (1.005-1.030); UROBILINOGEN URINE 0.2 E.U./dL (0.2-1.0)
[2019-12-18 18:27] LABS: BG BASE EXCESS -1.5 mmol/L (-2.0-2.0); BG CARBOXYHEMOGLOBIN 0.3 % (0.5-1.5); BG DEOXYHEMOGLOBIN 2.2 % (0.0-5.0); BG FRACTION INSPIRED OXYGEN 70; BG METHEMOGLOBIN 0.3 % (0.0-1.5); BG OXYGEN SATURATION 97.8 % (92.0-98.5); BG OXYHEMOGLOBIN 97.2 % (94.0-97.0); BG PCO2 32.8 mmHg (35.0-45.0); BG PH 7.445 (7.350-7.450); BG PO2 113.7 mmHg (75.0-100.0); BG SAMPLE SITE A-LINE; BG TOTAL HEMOGLOBIN 10.4 g/dL (12.0-18.0); BG VENT MODE VENT - APRV
[2019-12-18 18:52] LABS: HEMOGLOBIN. 10.5 g/dL (14.0-18.0); MEAN CORPUSCULAR HEMOGLOBIN 36.4 pg (28.0-32.0); MEAN CORPUSCULAR VOLUME 103.7 fL (80.0-94.0); MEAN PLATELET VOLUME 10.3 fl (7.4-10.4); PLATELET 98 x1000/uL (130-400); RED BLOOD CELL COUNT 2.89 mill/uL (4.7-6.1); RED CELL DISTRIBUTION WIDTH 14.7 % (11.6-14.6)
[2019-12-18 18:58] LABS: CHLORIDE 110 mEq/L (98-107); INR 1.4; PARTIAL THROMBOPLASTIN TIME 32.8 sec (23.4-31.0); PROTHROMBIN TIME 14.2 sec (9.6-11.0)
[2019-12-18 19:03] LABS: AMYLASE 50 IU/L (25-115)
[2019-12-18 19:12] LABS: PHOSPHORUS 0.9 mg/dL (2.5-4.9)
[2019-12-18] MEDS ORDERED: SODIUM PHOS,M-BASIC-D-BASIC 30 MM in DEXT 5% WATER 500 ML IV NR (20:00)
[2019-12-18 20:13] LABS: PLATELET ESTIMATE DECREASED
[2019-12-18] MEDS ORDERED: WATER IV NR (21:00)
[2019-12-18] MEDS ORDERED: POTASSIUM CHLORIDE IV NR (21:00)
[2019-12-18] MEDS ORDERED: DEXT 5% IV NR (21:00)
[2019-12-19] VITALS (53 sets, daily range): BP systolic 98–211; BP diastolic 58–127
[2019-12-19] MEDS ORDERED: VASOPRESSIN 100 UNIT in SODIUM CHLORIDE 0.9% 99.5 ML IV SCH ×2
[2019-12-19 00:06] LABS: BG CARBOXYHEMOGLOBIN 0.3 % (0.5-1.5); BG DEOXYHEMOGLOBIN 2.5 % (0.0-5.0); BG FRACTION INSPIRED OXYGEN 60; BG HCO3 ACT 23.1 mmol/L (22.0-26.0); BG METHEMOGLOBIN 0.2 % (0.0-1.5); BG OXYGEN SATURATION 97.5 % (92.0-98.5); BG PCO2 31.9 mmHg (35.0-45.0); BG PH 7.477 (7.350-7.450); BG PIP 31 cmH2O; BG SAMPLE SITE A-LINE; BG TOTAL HEMOGLOBIN 10.5 g/dL (12.0-18.0); BG VENT MODE VENT-APRV
[2019-12-19 00:22] LABS: HEMATOCRIT. 29.6 % (42.0-52.0); HEMOGLOBIN. 10.3 g/dL (14.0-18.0); MEAN CORPUSCULAR HEMOGLOBIN 35.9 pg (28.0-32.0); MEAN PLATELET VOLUME 10.1 fl (7.4-10.4); PLATELET 112 x1000/uL (130-400); RED BLOOD CELL COUNT 2.88 mill/uL (4.7-6.1); RED CELL DISTRIBUTION WIDTH 14.8 % (11.6-14.6)
[2019-12-19 00:27] LABS: CLARITY URINE CLEAR (CLEAR); COLOR URINE YELLOW (YELLOW); KETONES URINE NEGATIVE (NEGATIVE); LEUKOCYTE ESTERASE URINE TRACE (NEGATIVE); NITRITE URINE NEGATIVE (NEGATIVE); OCCULT BLOOD URINE NEGATIVE (NEGATIVE); PROTEIN URINE NEGATIVE (NEGATIVE); SPECIFIC GRAVITY URINE 1.009 (1.005-1.030); UROBILINOGEN URINE 0.2 E.U./dL (0.2-1.0)
[2019-12-19 00:29] LABS: CHLORIDE 115 mEq/L (98-107)
[2019-12-19] MEDS: FUROSEMIDE 40MG/4ML VIAL IVP SCH ×4 (00:31→19:52)
[2019-12-19 00:32] LABS: AMYLASE 79 IU/L (25-115)
[2019-12-19 00:36] LABS: PHOSPHORUS 1.6 mg/dL (2.5-4.9)
[2019-12-19] MEDS: LEVOTHYROXINE SODIUM 200 MCG in SODIUM CHLORIDE 0.9% 500 ML IV SCH (01:07)
[2019-12-19 01:11] LABS: INR 1.3; PARTIAL THROMBOPLASTIN TIME 27.3 sec (23.4-31.0)
[2019-12-19 02:26] LABS: PLATELET ESTIMATE DECREASED
[2019-12-19] MEDS: METHYLPREDNISOLONE SOD SUCC 125 MG/2 ML VIAL IV SCH ×3 (02:29→18:33)
[2019-12-19] MEDS: CEFEPIME 2,000 MG in DEXT 5% WATER 100 ML IV SCH ×3 (03:08→19:36)
[2019-12-19] MEDS: VANCOMYCIN 500 MG PREMIX 100 ML IV SCH ×2 (04:24→17:00)
[2019-12-19] MEDS: THIAMINE HCL 100 MG in SODIUM CHLORIDE 0.9% 49 ML IV SCH ×2 (05:35→13:27)
[2019-12-19 05:44] LABS: HEMATOCRIT. 29.6 % (42.0-52.0); HEMOGLOBIN. 10.1 g/dL (14.0-18.0); MEAN CORPUSCULAR HEMOGLOBIN 35.5 pg (28.0-32.0); MEAN CORPUSCULAR VOLUME 103.7 fL (80.0-94.0); MEAN PLATELET VOLUME 9.7 fl (7.4-10.4); PLATELET 124 x1000/uL (130-400); RED BLOOD CELL COUNT 2.85 mill/uL (4.7-6.1); RED CELL DISTRIBUTION WIDTH 14.9 % (11.6-14.6)
[2019-12-19 06:02] LABS: BG BASE EXCESS 0.2 mmol/L (-2.0-2.0); BG DEOXYHEMOGLOBIN 1.7 % (0.0-5.0); BG FRACTION INSPIRED OXYGEN 60; BG HCO3 ACT 23.1 mmol/L (22.0-26.0); BG METHEMOGLOBIN 0.5 % (0.0-1.5); BG OXYGEN SATURATION 98.3 % (92.0-98.5); BG OXYHEMOGLOBIN 97.8 % (94.0-97.0); BG PCO2 31.4 mmHg (35.0-45.0); BG PH 7.484 (7.350-7.450); BG PIP 31 cmH2O; BG PO2 109.8 mmHg (75.0-100.0); BG SAMPLE SITE A-LINE; BG TOTAL HEMOGLOBIN 10.6 g/dL (12.0-18.0); BG VENT MODE VENT - APRV
[2019-12-19 06:09] LABS: CHLORIDE 113 mEq/L (98-107)
[2019-12-19 06:17] LABS: AMYLASE 68 IU/L (25-115)
[2019-12-19 06:18] LABS: INR 1.4; PARTIAL THROMBOPLASTIN TIME 26.2 sec (23.4-31.0); PROTHROMBIN TIME 14.1 sec (9.6-11.0)
[2019-12-19 06:19] LABS: PHOSPHORUS 2.4 mg/dL (2.5-4.9)
[2019-12-19 06:42] LABS: CLARITY URINE CLEAR (CLEAR); COLOR URINE YELLOW (YELLOW); KETONES URINE NEGATIVE (NEGATIVE); LEUKOCYTE ESTERASE URINE NEGATIVE (NEGATIVE); NITRITE URINE NEGATIVE (NEGATIVE); OCCULT BLOOD URINE NEGATIVE (NEGATIVE); PROTEIN URINE NEGATIVE (NEGATIVE); SPECIFIC GRAVITY URINE 1.013 (1.005-1.030); UROBILINOGEN URINE 0.2 E.U./dL (0.2-1.0)
[2019-12-19 07:18] LABS: NUCLEATED RED BLOOD CELLS 3 /100 WBC; PLATELET ESTIMATE SLIGHTLY DECREASED
[2019-12-19] MEDS ORDERED: FUROSEMIDE 40MG/4ML VIAL IVP SCH (09:00)
[2019-12-19] MEDS ORDERED: POTASSIUM CHLORIDE IV ONE (10:00)
[2019-12-19] MEDS ORDERED: WATER IV ONE (10:00)
[2019-12-19] MEDS ORDERED: DEXT 5% IV ONE (10:00)
[2019-12-19 11:24] LABS: HEMOGLOBIN. 10.1 g/dL (14.0-18.0); MEAN CORPUSCULAR HEMOGLOBIN 35.9 pg (28.0-32.0); MEAN CORPUSCULAR VOLUME 103.5 fL (80.0-94.0); MEAN PLATELET VOLUME 10.1 fl (7.4-10.4); PLATELET 125 x1000/uL (130-400); RED BLOOD CELL COUNT 2.81 mill/uL (4.7-6.1); RED CELL DISTRIBUTION WIDTH 15.2 % (11.6-14.6)
[2019-12-19 11:35] LABS: INR 1.3; PARTIAL THROMBOPLASTIN TIME 26.1 sec (23.4-31.0); PROTHROMBIN TIME 13.9 sec (9.6-11.0)
[2019-12-19 11:38] LABS: BG BASE EXCESS 1.1 mmol/L (-2.0-2.0); BG CARBOXYHEMOGLOBIN 0.1 % (0.5-1.5); BG DEOXYHEMOGLOBIN 2.1 % (0.0-5.0); BG FRACTION INSPIRED OXYGEN 60; BG HCO3 ACT 24.2 mmol/L (22.0-26.0); BG METHEMOGLOBIN 0.3 % (0.0-1.5); BG OXYGEN SATURATION 97.9 % (92.0-98.5); BG OXYHEMOGLOBIN 97.5 % (94.0-97.0); BG PCO2 32.8 mmHg (35.0-45.0); BG PH 7.485 (7.350-7.450); BG PO2 115.4 mmHg (75.0-100.0); BG SAMPLE SITE A-LINE; BG TOTAL HEMOGLOBIN 10.5 g/dL (12.0-18.0); BG VENT MODE APRV
[2019-12-19 11:48] LABS: CHLORIDE 112 mEq/L (98-107)
[2019-12-19 11:53] LABS: AMYLASE 50 IU/L (25-115)
[2019-12-19 11:58] LABS: PHOSPHORUS 3.8 mg/dL (2.5-4.9)
[2019-12-19] MEDS: INSULIN REGULAR (DRIP) 100 UNITS in SODIUM CHLORIDE 0.9% 99 ML IV SCH (12:59)
[2019-12-19 13:35] LABS: NUCLEATED RED BLOOD CELLS 1 /100 WBC
[2019-12-19 13:36] LABS: PLATELET ESTIMATE SLIGHTLY DECREASED
[2019-12-19] MEDS ORDERED: HEPARIN 5000 UNITS/ML VIAL ONE (15:10)
[2019-12-19] MEDS ORDERED: FUROSEMIDE 40MG/4ML VIAL ONE (15:10)
[2019-12-19] MEDS ORDERED: MANNITOL 12.5G (25%) VIAL 50ML IV SCH (15:15)
[2019-12-19 16:40] LABS: HEMATOCRIT. 28.9 % (42.0-52.0); HEMOGLOBIN. 9.8 g/dL (14.0-18.0); MEAN CORPUSCULAR VOLUME 103.8 fL (80.0-94.0); MEAN PLATELET VOLUME 10.4 fl (7.4-10.4); PLATELET 121 x1000/uL (130-400); RED BLOOD CELL COUNT 2.79 mill/uL (4.7-6.1)
[2019-12-19 16:58] LABS: INR 1.3; PARTIAL THROMBOPLASTIN TIME 27.1 sec (23.4-31.0); PROTHROMBIN TIME 13.5 sec (9.6-11.0)
[2019-12-19 17:00] LABS: CHLORIDE 114 mEq/L (98-107)
[2019-12-19 17:06] LABS: AMYLASE 40 IU/L (25-115)
[2019-12-19 17:08] LABS: PHOSPHORUS 4.6 mg/dL (2.5-4.9)
[2019-12-19 17:15] LABS: NUCLEATED RED BLOOD CELLS 1 /100 WBC
[2019-12-19 17:16] LABS: PLATELET ESTIMATE SLIGHTLY DECREASED
[2019-12-19 17:20] LABS: CLARITY URINE CLEAR (CLEAR); COLOR URINE YELLOW (YELLOW); KETONES URINE NEGATIVE (NEGATIVE); LEUKOCYTE ESTERASE URINE TRACE (NEGATIVE); NITRITE URINE NEGATIVE (NEGATIVE); OCCULT BLOOD URINE NEGATIVE (NEGATIVE); PROTEIN URINE NEGATIVE (NEGATIVE); SPECIFIC GRAVITY URINE 1.018 (1.005-1.030); UROBILINOGEN URINE 0.2 E.U./dL (0.2-1.0)
[2019-12-19 18:01] LABS: BG BASE EXCESS 1.3 mmol/L (-2.0-2.0); BG CARBOXYHEMOGLOBIN 0.2 % (0.5-1.5); BG DEOXYHEMOGLOBIN 2.1 % (0.0-5.0); BG FRACTION INSPIRED OXYGEN 60; BG METHEMOGLOBIN 0.2 % (0.0-1.5); BG OXYGEN SATURATION 97.9 % (92.0-98.5); BG OXYHEMOGLOBIN 97.5 % (94.0-97.0); BG PCO2 41.9 mmHg (35.0-45.0); BG PH 7.411 (7.350-7.450); BG PO2 131.5 mmHg (75.0-100.0); BG SAMPLE SITE A-LINE; BG TOTAL HEMOGLOBIN 10.6 g/dL (12.0-18.0); BG VENT MODE APRV
[2019-12-19 18:31] LABS: HEMATOCRIT. 28.5 % (42.0-52.0); HEMOGLOBIN. 9.6 g/dL (14.0-18.0); MEAN CORPUSCULAR HEMOGLOBIN 34.8 pg (28.0-32.0); MEAN CORPUSCULAR VOLUME 102.8 fL (80.0-94.0); MEAN PLATELET VOLUME 10.3 fl (7.4-10.4); PLATELET 127 x1000/uL (130-400); RED BLOOD CELL COUNT 2.77 mill/uL (4.7-6.1); RED CELL DISTRIBUTION WIDTH 15.3 % (11.6-14.6)
[2019-12-19 18:36] LABS: CHLORIDE 116 mEq/L (98-107)
[2019-12-19 18:39] LABS: INR 1.3; PARTIAL THROMBOPLASTIN TIME 25.1 sec (23.4-31.0); PROTHROMBIN TIME 13.3 sec (9.6-11.0)
[2019-12-19 18:43] LABS: PHOSPHORUS 5.8 mg/dL (2.5-4.9)
[2019-12-19 18:44] LABS: AMYLASE 37 IU/L (25-115)
[2019-12-19] MEDS ORDERED: WATER IV NR ×2 (19:30→20:00)
[2019-12-19] MEDS ORDERED: DEXT 5% IV NR ×2 (19:30→20:00)
[2019-12-19] MEDS ORDERED: POTASSIUM CHLORIDE IV NR ×2 (19:30→20:00)
[2019-12-19 21:06] LABS: NUCLEATED RED BLOOD CELLS 2 /100 WBC
[2019-12-19 21:07] LABS: PLATELET ESTIMATE NORMAL
[2019-12-19] MEDS ORDERED: VECURONIUM BROMIDE 10 MG/VIAL IV ONE (22:21)
[2019-12-19] MEDS ORDERED: EPHEDRINE SULFATE 50MG/ML VIAL ONE (22:53)
[2019-12-19] MEDS ORDERED: MANNITOL 20% 500 ML IV ONE (23:21)
== END 2019-12-20 05:00 | disposition home or self-care (01) | DRG 950 ==
LOC: CVICU 04:01 → ORIP 12-19 22:40
PROC: 04HY32Z Insertion of Monitoring Device into Lower Artery, Percutaneous Approach (ICD-10-PCS; 2019-12-18)
PROC: 0FT00ZZ Resection of Liver, Open Approach (ICD-10-PCS; principal; 2019-12-19)
PROC: 0TT20ZZ Resection of Bilateral Kidneys, Open Approach (ICD-10-PCS; 2019-12-19)
DX: Z88.0 Allergy status to penicillin
CPT/HCPCS: 36415; 36600; 71045; 80053; 80202; 81003; 82150; 82248; 82375; 82805; 82962; 83605; 83615; 83735; 83930; 84100; 85025; 88307; 93005; 94003; J0692; J1250; J1644; J1815; J1940; J2150; J2543; J2930; J3370; J3411; J3480; J3490; J7040; J7050; J7060; P9047